=== PATIENT | female | born 1990 | race Caucasian/White ===

== ENCOUNTER 2016-06-11 07:52 | Emergency (ER) | payer BC, MEDICARE, OTHER ==
[~2016-06-11] VITALS: Ht 152.4 cm; Wt 83.9 kg
[~2016-06-11 07:52] MED LIST: BUTALBITAL, ACE1 TA2 PO
[2016-06-11 08:17] VITALS: BP 121/77
--- NOTE | 2016-06-11 08:21 | NUR ---
Patient ambulated to bed 8. RN evaluating patient at bedside.
--- NOTE | 2016-06-11 08:30 | NUR ---
PATIENT PRESENTS TO ED WITH PAIN ON RIGHT FLANK; PT STATES WOKE UP THIS MORNING ABOUT 2 HOURS AGO WITH C/O BACK RIGHT SIDE PAIN RADIATING TO RIGHT FLANK WITH X1 VOMITING THIS MORNING. DENIES DIARRHEA; SKIN IS PINK/WARM/DRY; AAOX4 WITH EVEN AND STEADY GAIT; LUNGS CLEAR BL; HR EVEN AND REGULAR; PT DENIES ANY FEVER, CP, SOB, OR COUGH AT THIS TIME; PATIENT STATES PAIN OF 10/10 AT THIS TIME; VSS; PATIENT POSITIONED FOR COMFORT; HOB ELEVATED; BEDRAILS UP X2; BED DOWN. ER MD MADE AWARE OF PT STATUS.
--- NOTE | 2016-06-11 08:49 | NUR ---
Dr. Caro evaluating patient at bedside.
--- NOTE | 2016-06-11 08:49 | NUR ---
AAO PT BEING ASSESS BY DR GONZALES AT BEDSIDE
[2016-06-11] MEDS ORDERED: NACL 0.9% 1,000 ML IV ONE (08:50)
[2016-06-11] MEDS ORDERED: ONDANSETRON 4 MG/2 ML VIAL IVP ONE (08:50)
[2016-06-11] MEDS ORDERED: KETOROLAC 15 MG/ML VIAL IVP ONE (08:50)
--- NOTE | 2016-06-11 09:31 | NUR ---
Patient taken to CT scan via wheelchair by tech.
--- NOTE | 2016-06-11 09:34 | NUR ---
AAO COOPERATIVE PT TAKEN TO CT SCAN VIA WHEELCHAIR BY ENGINEERING AND SCIENTIFIC PROGRAMMER
--- NOTE | 2016-06-11 09:47 | NUR ---
Patient returned from CT scan. RN re-evaluating patient at bedside.
--- NOTE | 2016-06-11 09:50 | NUR ---
AAO PT C/O OF MORE PAIN AT THIS TIME DR GONZALES NOTIFIED AWAITING ORDERS
[2016-06-11] MEDS ORDERED: MORPHINE SULFATE 4 MG/ML SYR IVP ONE (09:55)
--- NOTE | 2016-06-11 10:04 | NUR ---
Dr. Caro re-evaluating patient at bedside.
[2016-06-11] MEDS ORDERED: cefTRIAXone 1,000 MG VIAL ONE (10:20)
--- NOTE | 2016-06-11 11:15 | NUR ---
Dr. Caro re-evaluating patient at bedside.
[2016-06-11 11:50] VITALS: BP 112/68
--- NOTE | 2016-06-11 11:50 | NUR ---
Patient discharged with v/s stable. Written and verbal after care instructions given and explained; Patient alert, oriented and verbalized understanding of instructions. Ambulatory with steady gait. All questions addressed prior to discharge. ID band removed. Patient advised to follow up with PMD. Rx of NORCO, MOTRIN, CIPRO given. Patient educated on indication of medication including possible reaction and side effects. Opportunity to ask questions provided and answered.
== END 2016-06-11 11:50 | disposition home or self-care (01) ==
LOC: MED 07:52
DX: N12 Tubulo-interstitial nephritis, not specified as acute or chronic (principal); N20.1 Calculus of ureter
CPT/HCPCS: 36415; 74177; 80053; 81001; 81025; 83690; 85025; 87086; 96361; 96365; 96375; 99285; J0696; J1885; J2270; J2405; J7030; J7060; Q9967